=== PATIENT | male | born 1955 | race Caucasian/White ===

== ENCOUNTER 2016-08-28 11:07 | Emergency (ER) | payer OTHER ==
[~2016-08-28] VITALS: Ht 177.8 cm; Wt 86.4 kg
[~2016-08-28 11:07] MED LIST: ASPI-973 PO; CARV12.52 PO; FURO-128 PO; INSU100I13 SUBQ; NITR0.4T SL; OMEP40CA36 PO; ONDA8TAB10 PO; SIMV10TA4 PO
[2016-08-28 11:26] VITALS: BP 126/53; PULSE 88; RESP 15; O2SAT 100
[2016-08-28 11:47] VITALS: BP 109/41; PULSE 89; RESP 14; O2SAT 99
--- NOTE | 2016-08-28 11:53 | ED.REPORT ---
HPI-GI Bleed Date of Service Aug 28, 2016 ED Provider: Anabel Irizarry MD The patient is a 61 year old male with history of varices, prior upper GI bleed , liver cirrhosis, diabetes mellitus type II, hepatitis C, anemia, coronary artery disease, congestive heart failure, and hypertension, who was brought to the emergency department by EMS for an episode of vomiting with bloody emesis this morning. He has had abdominal pain over the last day. Today he also noticed nausea and dizziness. At this time he only complains of mild nausea. He denies chest pain, shortness of breath, back pain, extremity pain, diarrhea, bloody stools or melena. He drinks alcohol occasionally but has not drank in the last few days. He took ibuprofen a few days ago for a gout flare. Nursing Notes Stated Complaint: VOMITING BLOOD Chief Complaint: Male Abdominal Pain Nursing Notes Reviewed: Yes Allergies: Coded Allergies: Penicillins (Verified Allergy, Severe, RASH, 07/05/15) STATES OK WITH DERIVITIVES OF PCN meropenem (Verified Allergy, Intermediate, 07/05/15) ciprofloxacin (Verified Allergy, Unknown, 07/05/15) lisinopril (Verified Adverse Reaction, Unknown, UNKNOWN, 07/05/15) Scheduled Furosemide (Lasix) 40 Mg Tablet 40 MG PO DAILY Insulin Glargine (Lantus U100 Solostar Insulin Pen) 100 Unit/1 Ml Insuln.pen 35 UNIT SUBQ BID Scheduled PRN Nitroglycerin SL (Nitrostat) 0.4 Mg Tab.subl 0.4 MG SL Q5MIN PRN PRN For Chest Pain Miscellaneous Medications Aspirin (Aspirin) 81 Mg Tablet 81 MG PO QOD General Time Seen by Provider: 11:54 Chief Complaint Chief Complaint: Vomiting bright red blood Bleeding Severity: Moderate Hx Obtained From: Patient, EMS Arrived By: Ambulance Onset Occurred: 1 - 4 hours ago Symptom Duration: 1 - 15 minutes Progression Since Onset: Gradually improving Location: : Abdomen lower Quality: Painful Severity: Current: Moderate Severity: Maximum: Severe Recent Healthcare: No recent hospitalization Similar Sx Previous: No Past Medical History Past Medical History Notes: Patient is a Worship Past Medical History Diabetes mellitus type II Cirrhosis Hep C (status post successful antiviral therapy) Myocardial infraction Hyperlipidemia Anemia Chronic kidney disease hx of osteomyelitis Reports: Congestive heart failure, Coronary artery disease, Hypertension Past Surgical History Heart cath with stent placement Deviated septum Cheek/nose Cholecystectomy Penile implant s/p amputation of right 5th toe due to diabetes Smoking History Former Smoker Social History Alcohol Use: "Social" Drug Use: Denies drug use Other Social History: Local resident Ambulatory Status Independent Review of Systems Respiratory: Denies: Shortness of breath Cardiovascular: Denies: Chest pain GI: Reports: Abdominal pain, Hematemesis, Nausea, Vomiting, Denies: Bloody/tarry stool, Diarrhea, Hematochezia, Melena Neurologic: Reports: Dizziness Complete sys rev & neg: except as marked. Musculoskeletal: Denies: Back pain, Extremity pain, Extremity swelling Physical Exam Initial Vital Signs Vital Signs (First) Date Time Temp Pulse Resp B/P Pulse Ox O2 Delivery O2 Flow Rate FiO2 08/28/16 11:26 36.6 88 15 126/53 100 Room Air Initial VS: Reviewed, Vital signs normal Head / Eyes: Atraumatic, Normocephalic, PERRL Neck: Supple, Non-tender, Full range of motion Lymphatic: No lymphadenopathy Extremities: Vascular intact, Neuro intact, No swelling, No tenderness Skin: Warm, Dry, No cyanosis Neurologic: Alert, Oriented, Nonfocal Psychiatric: Mood/affect normal, Behavior normal, Normal thought content General/Constitutional: Awake, Alert Appearance / Presentation: Positive: Pale Respiratory / Chest: Atraumatic, Breath sounds NL, Breath sounds = bilat, No respiratory distress, No rales, No rhonchi, No wheezing Cardiovascular: Heart rate NL, Regular rhythm, Heart sounds NL, No gallop, No murmurs, No rubs, Cap refill not delayed, Peripheral circulation NL Abdomen: Soft, No guarding, No rebound, BS normoactive, No distention, No palpable mass, No pulsatile mass Lower abdominal discomfort ENT: Airway patent dried blood around his mouth Wrist / Hand: Neurologic intact, Vascular intact Nailbeds are very pale. Interpretation & Diagnostics Lab Results Interpretation Result Diagram: 08/28/16 1300 08/28/16 1212 Test 08/28/16 12:12 08/28/16 13:00 White Blood Count 16.3th/mm3 (3.8-10.1) Red Blood Count 1.80mil/mm3 (4.40-5.80) Mean Corpuscular Volume 92.2fL (81-100) Mean Corpuscular Hemoglobin 30.0pg (27.0-35.0) Mean Corpuscular Hemoglobin Concent 32.5% (32.0-37.0) Red Cell Distribution Width 14.5% (12.3-15.4) Platelet Count 188bil/L (150-400) Neutrophils (%) (Auto) 82.1% (40-74) Lymphocytes (%) (Auto) 11.3% (14-46) Monocytes (%) (Auto) 4.3% (4-12) Eosinophils (%) (Auto) 0.3% (0-5) Basophils (%) (Auto) 0.3% (0-3) Prothrombin Time 10.7sec (8.1-12.5) Prothromb Time International Ratio 1.00ratio Sodium Level 135mEq/L (134-144) Potassium Level 5.0mEq/L (3.5-5.2) Chloride Level 102mEq/L (97-108) Carbon Dioxide Level 12mmol/L (18-29) Blood Urea Nitrogen 131mg/dL (6-24) Creatinine 2.34mg/dL (0.76-1.27) Estimat Glomerular Filtration Rate 30mL/min (>59) Glucose Level 492mg/dL (60-99) Calcium Level 8.2mg/dL (8.5-10.1) Magnesium Level 2.0mg/dL (1.6-2.6) Total Bilirubin 0.3mg/dL (0.0-1.2) Aspartate Amino Transf (AST/SGOT) 26U/L (0-50) Alanine Aminotransferase (ALT/SGPT) 31U/L (0-44) Alkaline Phosphatase 84U/L (25-160) Total Protein 5.3g/dL (6.4-8.4) Albumin 2.4g/dL (3.4-5.0) Hemoglobin 5.1g/dL (13.8-17.2) Hematocrit 15.1% (41.0-50.0) ECG Interpretation ECG Interpretation: Sinus rhythm with a rate of 91 bpm Time: 12:06 Interpreted by: ED physician X-Ray Chest Interpretation Chest Xray Interpretation: IMPRESSION: No acute cardiopulmonary disease. Dictated by: Ramon HOWELL Interpreted: Charlie Vargas MD on 08/28/2016 at 13:30 Interpretation / Wet Read by: Interpret - Radiologist Re-Eval/Medical Decision Med Decision/Clinical Course The patient presents after an episode of hematemesis, he tells me he has had varices. The patient is Roman Catholic and refuses blood products. He was seen by GI here, we wish to do endoscopy and possibly tie off the area of bleeding however after further discussion the family wanted to go to [facility]. The patient had 2 episodes of hematemesis here but has maintained his blood pressure also although his heart rate did increase. Source of Hx: Old records, EMS Re-Evaluation/Progress #1: Time of Eval: 12:34 Re-Evaluation/Progress Note: The patient is a cheondoism and is not willing to have a blood transfusion. Re-Evaluation/Progress #2: Time of Eval: 12:45 Re-Evaluation/Progress Note: The patient is agreeable for admission. Re-Evaluation/Progress #3: Time of Eval: 13:35 Re-Evaluation/Progress Note: The patient vomited bright red blood with clots again. Re-Evaluation/Progress #4: Time of Eval: 14:00 Re-Evaluation/Progress Note: The patients conditions is still declining. He is still refusing blood products. Family members are requesting possible transfer to [facility]. Re-Evaluation/Progress #5: Time of Eval: 14:53 Re-Evaluation/Progress Note: Discussed options with the patient and family. They would still like to move forward with going to [facility]. Consultation #1: Referral / Consult Name: Romeo Sorenson MD Call Returned at: 12:33 Homeowner Association Manager: Will see patient, Agrees with eval, Agrees with plan Note: Spoke with the on-call offset lithographic press operator. He agrees to consult. Consultation #2: Referral / Consult Name: Leonel Liu MD Consulted With: Hospitalist Requested Call at: 12:45 Call Returned at: 13:43 Homeowner Association Manager: Will see patient, Agrees with eval, Agrees with plan, Accepts admit Consultation #3: Requested Call at: 14:30 Call Returned at: 15:00 Note: Spoke to [facility]. Dr. Zendejas is accepting the patient. Okay to call [facility]. They will call back with bed assignment. Counseled Regarding: Diagnosis, Lab results, Need for transfer Discharge & Departure Impression: Primary Impression: Upper GI bleed Additional Impression: Acute on chronic renal failure Disposition: Transfer, Acute Care Facility Receiving Hospital: [facility] Transfer Accepted: Yes Transfer Accepted at: 15:02 Transfer Reason: Higher level of care, Patient request Spoke with: Attending physician (Dr. Zendejas) Patient Status: Unstable Patient Informed: Yes Discharge Condition All VS Reviewed: Yes Condition: Stable Referrals: Kaylee Cyr MD (PCP) Genet Attestation Portions of this note were transcribed by Linda Gilmore. I, Dr. Irizarry personally performed the history, physical exam and medical decision-making; I reviewed and confirmed the accuracy of the information in the transcribed note. Signed by: Genet Wyatt, 08/28/2016 at 1515. copies to: Kaylee Cyr MD, Jena M MD Aug 28, 2016 11:52 Linda Gilmore Aug 28, 2016 12:00
[2016-08-28] MEDS ORDERED: 0.9% Sodium Chloride 1,000 ML IV ONE ×2 (11:58→14:55)
[2016-08-28] MEDS ORDERED: Octreotide Inj 500 MCG in 0.9% Sodium Chloride 100 ML IV ONE (12:00)
[2016-08-28] MEDS ORDERED: Pantoprazole 4 mg/mL 10 mL Inj IVPUSH ONE (12:00)
[2016-08-28] MEDS ORDERED: Pantoprazole Inj 80 MG, Pharmacy To Mix 1 EA in 0.9% Sodium Chloride 80 ML IV ONE ×2 (12:00)
[2016-08-28 12:18] LABS: BASOPHILS % (AUTO) 0.3 % (0-3); EOSINOPHILS % (AUTO) 0.3 % (0-5); MONOCYTES % (AUTO) 4.3 % (4-12); Mean Corpuscular Volume 92.2 fL (81-100); NEUTROPHILS % (AUTO) 82.1 % (40-74); Platelet Count 188 bil/L (150-400)
--- NOTE | 2016-08-28 13:34 | DRSVH ---
PROCEDURE: X-RAY CHEST ONE VIEW, PORTABLE ([id number]) INDICATIONS: dizzy TECHNIQUE: One view of the chest was acquired. COMPARISON: [facility], CT, CT CHEST WO CON, 10/19/2015, 6:59. [facility], CR, XR CHEST 2VW, 08/17/2015, 13:36. FINDINGS: Surgical changes and devices: None. Lungs and pleura: No pleural effusions or pneumothorax. Lungs are clear. Mediastinum: Mediastinal contours appear normal. Heart size is normal. Bones and chest wall: No suspicious bony lesions. Overlying soft tissues appear unremarkable. IMPRESSION: No acute cardiopulmonary disease. Dictated by: Ramon HOWELL Interpreted: Charlie Vargas MD on 08/28/2016 at 13:30 Transcribed by: HENNY on 08/28/2016 at 13:33 Approved by: Charlie Vargas M.D. on 08/28/2016 at 15:40
[2016-08-28] MEDS ORDERED: Ondansetron 2 mg/mL 2 mL Inj IVPUSH PRN (13:35)
[2016-08-28 14:40] VITALS: BP 129/72; PULSE 88; RESP 14
[2016-08-28] MEDS ORDERED: cefTRIAXone Inj 2,000 MG in Dextrose 5% Minibag Plus 50 ML IV ONE (14:55)
[2016-08-28 15:17] VITALS: BP 127/48; PULSE 88; RESP 14; O2SAT 100
[2016-08-28 15:58] VITALS: BP 127/48; PULSE 88; RESP 14; O2SAT 100
--- NOTE | 2016-08-29 06:56 | CONS ---
[address] [address] CONSULTATION REPORT PATIENT: ROSALES MATTHEWS : 1955 MR#: [id number] ADMIT: 08/28/2016 JOB ID: [id number] DATE OF SERVICE: 08/28/2016 HISTORY OF PRESENT ILLNESS: It was a pleasure seeing this patient at [facility] Emergency Department for acute GI bleeding. This is a 61-year-old gentleman who presents with sudden onset of coffee-ground emesis. He has a prior history of esophageal varices, prior upper GI bleeding requiring banding with underlying liver cirrhosis, diabetes with hep C. He has underlying anemia and the baseline was reported to be between 8-10 hemoglobin. He also has no coronary artery disease, congestive heart failure and hypertension. He came to the emergency department because of episode of bloody emesis this morning. Prior to that, he was feeling weak, but he was not vomiting blood. He may have had darker-colored stools. Because he was getting weaker, his called EMS. The patient did not want to come into the hospital. Also, during this time, he had some abdominal discomfort the day before. Because he was feeling weak, dizzy, lightheaded, nauseated and he vomited blood, he came in. In the emergency department, his hemoglobin was reported to be 5.4, white count of 16,000, platelets of 188,000. Coags are normal at 1.0. Creatinine is 2.34. BUN of 131. He was given IV Protonix and IV octreotide. He was also given ceftriaxone IV. However, because he was a Voodoo, he did not want to receive any blood transfusion or blood products. By the time I saw him, he vomited again and I saw a significant amount of coffee-ground material on the floor. When I saw him, he was again dizzy, lightheaded, no chest pain, no shortness of breath. Did not endorse abdominal pain. He said he was feeling dizzy. PAST MEDICAL HISTORY: As above, diabetes, cirrhosis, hep C, status post successful antiviral therapy, [place], high cholesterol, anemia, chronic kidney disease, history of osteomyelitis, heart failure, CAD, hypertension. PAST SURGICAL HISTORY: Heart cath with stent placement, cholecystectomy, amputation of right 5th toe. SOCIAL HISTORY: Former smoker. Drinks socially. Denies drugs. PHYSICAL EXAMINATION: Vitals: Temp 36.6, pulse 88, respiration 14, blood pressure 127/400, satting at 100% on room air. Head and neck: No icterus. Lungs: Clear. Cardiovascular: Regular rate and rhythm with normal S1, S2. Abdomen is soft. Mild epigastric tenderness without any guarding, rebound, or firmness. Normoactive bowel sounds. Extremities: No pitting edema in the ankles. Skin shows no obvious jaundice. LABORATORY DATA: BUN 131, creatinine 2.34, INR 1. Hemoglobin 5.1 at 1300. By the time I saw him, he vomited coffee-ground material. IMPRESSION and PLAN: This is a 61-year-old gentleman with most likely variceal bleed who is severely anemic. By the time I saw the patient, I recommended IV Protonix, IV octreotide and later ceftriaxone. These were given and I have also consulted Anesthesia for sedation. Because he was vomiting coffee ground material, he will need to be intubated for airway protection. The stomach probably has lots of blood. I spoke with the patient and his about doing an upper endoscopy. With hemoglobin of 5 and inadequate resuscitation, I am concerned about hemodynamic instability and hypotension. Strongly recommended getting blood for resuscitation. Blood can be life saving under these circumstances. Doing an upper endoscopy without adequate resuscitation would increase the risk of significant complications including vascular collapse and . Other possibility is that even if we stop the bleeding, there is risk of end- organ damage due to hypoxia. Prolong hypoxia can cause end-organ damage of the brain heart, kidneys. However, the patient and his declined blood transfusion due to protestant alena. PLAN: Proceed with EGD with anesthesia in the operating room. After consulting their friend, they wanted options for non-blood products that could be given in place of blood. I spoke with the medical insurance claims processor, pharmacy, and charge nurse to see if we can provide this service. This hospital did not have those products. . Therefore,they wanted to hold off on any endoscopic procedures and wanted to be transferred to [facility] where they have a program for non-blood product transfusion.I also informed them that being transferred under these circumstances also has risks such as if he starts bleeding more, he could lose blood pressure and could during transport. All this was discussed with them and they wanted to be transferred to [place] to receive the non-blood products to resuscitate him. Therefore, I signed off and recommended the patient's transfer to [place]. ANGELD
== END 2016-08-28 16:02 | disposition short-term general hospital (02) ==
LOC: EDBD 11:07 → SED 11:07 → PCC 13:10 → UNDOADMIN 13:10 → SED 16:02
DX: K92.2 Gastrointestinal hemorrhage, unspecified (principal); N17.9 Acute kidney failure, unspecified; I12.0 Hypertensive chronic kidney disease with stage 5 chronic kidney disease or end stage renal disease; N18.9 Chronic kidney disease, unspecified; E11.22 Type 2 diabetes mellitus with diabetic chronic kidney disease; I25.10 Atherosclerotic heart disease of native coronary artery without angina pectoris; I50.9 Heart failure, unspecified; I25.2 Old myocardial infarction; K74.60 Unspecified cirrhosis of liver; Z86.19 Personal history of other infectious and parasitic diseases; Z86.2 Personal history of diseases of the blood and blood-forming organs and certain disorders involving the immune mechanism; Z87.891 Personal history of nicotine dependence; Z79.82 Long term (current) use of aspirin; Z79.4 Long term (current) use of insulin; Z88.0 Allergy status to penicillin; Z88.1 Allergy status to other antibiotic agents; Z88.8 Allergy status to other drugs, medicaments and biological substances
CPT/HCPCS: 36415; 71010; 80053; 83735; 85014; 85018; 85025; 85610; 86850; 93005; 96361; 96365; 96366; 96368; 96375; 99285; J0696; J2354; J2405; J7030